=== PATIENT | female | born 1985 | race Caucasian/White ===

== ENCOUNTER 2020-10-28 10:36 | Emergency (ER) | payer OTHER ==
--- NOTE | 2020-10-28 11:31 | ERPHSYRPT ---
- History of Present Illness Time Seen by Provider: 10/28/20 10:38 Source: patient Exam Limitations: no limitations Patient Subjective Stated Complaint: HTN Triage Nursing Assessment: pt to ED c/o HTN x [address] Smiley for HTN yesterday and was given propranolol prescription. states she was feeling symptomatic again at work, dizzy, R arm tingling and cold sweats, and rechecked BP which read 180/130. called PCP office and was referred to ED. Physician History: 35 years old female with history of anxiety presented in the ER with chief complaint of elevated blood pressure with numbness tingling of the left arm/left thigh sudden onset almost an hour prior to arrival while she was at school. She got her blood pressure checked it was 180/130. On the way to ER she started to have cold sweats with generalized weakness fatigue and tiredness. Patient reports her blood pressure has been staying high and was seen at primary care, was started on propranolol. Patient reports she also developed throbbing headac he on the way to ER without any visual disturbance. Patient reports having headaches off and on for quite some time usually upon waking up and occasionally during the day time as well. No diplopia. Was evaluated by protective services officer in the past and was told that she probably have some kind of swelling in the back of her eye. Complaining of weakness all over but no focal weakness. No chest pain or palpitations reported. Timing/Duration: today, constant, sudden, improved Severity: moderate Associated Symptoms: headaches, weakness Allergies/Adverse Reactions: No Known Drug Allergies Allergy (Unverified 10/28/20 11:20) Home Medications: Propranolol HCl 20 mg [Inderal 20 MG] 20 mg PO TID 10/28/20 [History] Venlafaxine HCl ER 75 mg [Effexor XR 75 MG] 75 mg PO 10/28/20 [History] Hx Tetanus, Diphtheria Vaccination/Date Given: No Hx Influenza Vaccination/Date Given: No Hx Pneumococcal Vaccination/Date Given: No Immunizations Up to Date: No Travel Risk - International Travel Have you traveled outside of the country in past 3 weeks: No - Coronavirus Screening Are you exhibiting any of the following symptoms?: No Close contact with a COVID-19 positive Pt in past 14-21 Days: No - Vaccine Status Have you recieved a Covid-19 vaccination: No - Review of Systems Constitutional: No Symptoms Eyes: No Symptoms Ears, Nose, & Throat: No Symptoms Respiratory: No Symptoms Cardiac: No Symptoms Abdominal/Gastrointestinal: No Symptoms Genitourinary Symptoms: No Symptoms Musculoskeletal: No Symptoms Skin: No Symptoms Neurological: Headache, Sensory Changes Psychological: Anxiety Endocrine: No Symptoms Hematologic/Lymphatic: No Symptoms Immunological/Allergic: No Symptoms - Past Medical History Pertinent Past Medical History: Yes Neurological History: Other Psycho-Social History: Anxiety, Depression Other Medical History: ESCOBAR, - Past Surgical History Past Surgical History: Yes - Social History Smoking Status: Never smoker Exposure to second hand smoke: No Drug Use: none Patient Lives Alone: No - Female History Hx Now: (UNKN) - Nursing Vital Signs Nursing Vital Signs: Initial Vital Signs Temperature 97.1 F 10/28/20 11:03 Pulse Rate 59 L 10/28/20 11:03 Respiratory Rate 18 10/28/20 11:03 Blood Pressure 178/111 10/28/20 11:03 O2 Sat by Pulse Oximetry 98 10/28/20 11:03 Pain Scale Pain Intensity 4 - Physical Exam General Appearance: no apparent distress, alert Eye Exam: PERRL/EOMI, eyes nml inspection Ears, Nose, Throat Exam: normal ENT inspection, pharynx normal Neck Exam: normal inspection, supple, full range of motion Respiratory Exam: normal breath sounds, lungs clear Cardiovascular Exam: regular rate/rhythm, normal heart sounds Gastrointestinal/Abdomen Exam: soft, normal bowel sounds, No tenderness Back Exam: normal inspection, normal range of motion Extremity Exam: normal inspection, normal range of motion, pelvis stable Neurologic Exam: alert, oriented x 3, cooperative, fire control mechanic II-XII nml as tested, nml cerebellar function, nml station & gait, sensory deficit, No normal mood/affect (Anxious), No sensation nml (Decreased sensations of fine touch and left lateral forearm/palm/left lateral thigh), No motor deficits Skin Exam: normal color SpO2 Interpretation: normal SpO2: 98 O2 Delivery: Room Air - Course EKG Interpreted by Me: RATE (62), Sinus Rhythm, NORMAL AXIS, NORMAL INTERVALS, NORMAL QRS Ordered Tests: Active Orders 24 hr Category Date Time Status Software Licensing Analyst STAT Care 10/28/20 11:21 Completed EKG-ER Only STAT Care 10/28/20 11:20 Completed IV Insertion STAT Care 10/28/20 11:20 Completed NPO (ED) STAT Care 10/28/20 11:20 Completed CHEST 1 VIEW (PORTABLE) Stat Exams 10/28/20 11:20 Completed HEAD WITHOUT CONTRAST [CT] Stat Exams 10/28/20 11:20 Completed CBC W DIFF Stat Lab 10/28/20 11:33 Completed CMP Stat Lab 10/28/20 11:33 Completed HCG,QUALITATIVE URINE Stat Lab 10/28/20 11:26 Completed Lactic Acid Stat Lab 10/28/20 11:33 Completed TROPONIN Q3H Lab 10/28/20 11:30 Completed UA W/RFX UR CULTURE Stat Lab 10/28/20 11:26 Completed Urine Triage Profile Stat Lab 10/28/20 11:26 Completed Lab/Rad Data: Laboratory Result Diagrams 10/28/20 11:33 10/28/20 11:33 Laboratory Results 10/28/20 10/28/20 10/28/20 Range/Units 11:33 11:33 11:33 WBC 8.4 (4.0-10.5) K/mm3 RBC 4.98 (4.1-5.4) M/mm3 Hgb 13.3 (12.0-16.0) gm/dl Hct 40.7 (35-47) % MCV 81.7 (78-100) fl MCH 26.7 (26-32) pg MCHC 32.7 (32-36) g/dl RDW 13.7 (11.5-14.0) % Plt Count 244 (150-450) K/mm3 MPV 9.7 (7.5-11.0) fl Gran % 70.9 H (36.0-66.0) % Eos # (Auto) 0.01 (0-0.5) Absolute Lymphs (auto) 1.73 (1.0-4.6) Absolute Monos (auto) 0.69 (0.0-1.3) Lymphocytes % 20.6 L (24.0-44.0) % Monocytes % 8.2 (0.0-12.0) % Eosinophils % 0.1 (0.00-5.0) % Basophils % 0.2 (0.0-0.4) % Absolute Granulocytes 5.94 (1.4-6.9) Basophils # 0.02 (0-0.4) Sodium 139 (137-145) mmol/L Potassium 3.6 (3.5-5.1) mmol/L Chloride 104 (98-107) mmol/L Carbon Dioxide 27 (22-30) mmol/L Anion Gap 11.8 (5-15) MEQ/L BUN 16 (7-17) mg/dL Creatinine 0.66 (0.52-1.04) mg/dL Estimated GFR > 60.0 ML/MIN Glucose 89 (74-106) mg/dL Lactic Acid 0.7 (0.4-2.0) Calcium 9.2 (8.4-10.2) mg/dL Total Bilirubin 0.60 (0.2-1.3) mg/dL AST 24 (14-36) U/L ALT 27 (0-35) U/L Alkaline Phosphatase 96 (38-126) U/L Troponin I (0.000-0.034) ng/mL Serum Total Protein 7.7 (6.3-8.2) g/dL Albumin 4.3 (3.5-5.0) g/dL Urine Color (YELLOW) Urine Appearance (CLEAR) Urine pH (5-6) Ur Specific [place] (1.005-1.025) Urine Protein (Negative) Urine Ketones (NEGATIVE) Urine Blood (0-5) Taiwo/ul Urine Nitrite (NEGATIVE) Urine Bilirubin (NEGATIVE) Urine Urobilinogen (0-1) mg/dL Ur Leukocyte Esterase (NEGATIVE) Urine WBC (Auto) (0-5) /HPF Urine RBC (Auto) (0-2) /HPF U Epithel Cells (Auto) (FEW) /HPF Urine Bacteria (Auto) (NEGATIVE) /HPF Urine Mucus (Auto) (NEGATIVE) /HPF Urine Culture Reflexed (NO) Urine Glucose (NEGATIVE) mg/dL Urine HCG, Qual (Negative) Urine Opiates Level (NEGATIVE) Ur Methadone (NEGATIVE) Urine Barbiturates (NEGATIVE) Ur Phencyclidine (PCP) (NEGATIVE) Urine Amphetamine (NEGATIVE) U Benzodiazepine Level (NEGATIVE) Urine Cocaine (NEGATIVE) Urine Marijuana (THC) (NEGATIVE) 10/28/20 10/28/20 10/28/20 Range/Units 11:30 11:26 11:26 WBC (4.0-10.5) K/mm3 RBC (4.1-5.4) M/mm3 Hgb (12.0-16.0) gm/dl Hct (35-47) % MCV (78-100) fl MCH (26-32) pg MCHC (32-36) g/dl RDW (11.5-14.0) % Plt Count (150-450) K/mm3 MPV (7.5-11.0) fl Gran % (36.0-66.0) % Eos # (Auto) (0-0.5) Absolute Lymphs (auto) (1.0-4.6) Absolute Monos (auto) (0.0-1.3) Lymphocytes % (24.0-44.0) % Monocytes % (0.0-12.0) % Eosinophils % (0.00-5.0) % Basophils % (0.0-0.4) % Absolute Granulocytes (1.4-6.9) Basophils # (0-0.4) Sodium (137-145) mmol/L Potassium (3.5-5.1) mmol/L Chloride (98-107) mmol/L Carbon Dioxide (22-30) mmol/L Anion Gap (5-15) MEQ/L BUN (7-17) mg/dL Creatinine (0.52-1.04) mg/dL Estimated GFR ML/MIN Glucose (74-106) mg/dL Lactic Acid (0.4-2.0) Calcium (8.4-10.2) mg/dL Total Bilirubin (0.2-1.3) mg/dL AST (14-36) U/L ALT (0-35) U/L Alkaline Phosphatase (38-126) U/L Troponin I < 0.012 (0.000-0.034) ng/mL Serum Total Protein (6.3-8.2) g/dL Albumin (3.5-5.0) g/dL Urine Color (YELLOW) Urine Appearance (CLEAR) Urine pH (5-6) Ur Specific [place] (1.005-1.025) Urine Protein (Negative) Urine Ketones (NEGATIVE) Urine Blood (0-5) Taiwo/ul Urine Nitrite (NEGATIVE) Urine Bilirubin (NEGATIVE) Urine Urobilinogen (0-1) mg/dL Ur Leukocyte Esterase (NEGATIVE) Urine WBC (Auto) (0-5) /HPF Urine RBC (Auto) (0-2) /HPF U Epithel Cells (Auto) (FEW) /HPF Urine Bacteria (Auto) (NEGATIVE) /HPF Urine Mucus (Auto) (NEGATIVE) /HPF Urine Culture Reflexed (NO) Urine Glucose (NEGATIVE) mg/dL Urine HCG, Qual NEGATIVE (Negative) Urine Opiates Level NEGATIVE (NEGATIVE) Ur Methadone NEGATIVE (NEGATIVE) Urine Barbiturates NEGATIVE (NEGATIVE) Ur Phencyclidine (PCP) NEGATIVE (NEGATIVE) Urine Amphetamine NEGATIVE (NEGATIVE) U Benzodiazepine Level NEGATIVE (NEGATIVE) Urine Cocaine NEGATIVE (NEGATIVE) Urine Marijuana (THC) NEGATIVE (NEGATIVE) 10/28/20 Range/Units 11:26 WBC (4.0-10.5) K/mm3 RBC (4.1-5.4) M/mm3 Hgb (12.0-16.0) gm/dl Hct (35-47) % MCV (78-100) fl MCH (26-32) pg MCHC (32-36) g/dl RDW (11.5-14.0) % Plt Count (150-450) K/mm3 MPV (7.5-11.0) fl Gran % (36.0-66.0) % Eos # (Auto) (0-0.5) Absolute Lymphs (auto) (1.0-4.6) Absolute Monos (auto) (0.0-1.3) Lymphocytes % (24.0-44.0) % Monocytes % (0.0-12.0) % Eosinophils % (0.00-5.0) % Basophils % (0.0-0.4) % Absolute Granulocytes (1.4-6.9) Basophils # (0-0.4) Sodium (137-145) mmol/L Potassium (3.5-5.1) mmol/L Chloride (98-107) mmol/L Carbon Dioxide (22-30) mmol/L Anion Gap (5-15) MEQ/L BUN (7-17) mg/dL Creatinine (0.52-1.04) mg/dL Estimated GFR ML/MIN Glucose (74-106) mg/dL Lactic Acid (0.4-2.0) Calcium (8.4-10.2) mg/dL Total Bilirubin (0.2-1.3) mg/dL AST (14-36) U/L ALT (0-35) U/L Alkaline Phosphatase (38-126) U/L Troponin I (0.000-0.034) ng/mL Serum Total Protein (6.3-8.2) g/dL Albumin (3.5-5.0) g/dL Urine Color COLORLESS (YELLOW) Urine Appearance CLEAR (CLEAR) Urine pH 8.0 (5-6) Ur Specific [place] 1.002 (1.005-1.025) Urine Protein NEGATIVE (Negative) Urine Ketones NEGATIVE (NEGATIVE) Urine Blood MODERATE (0-5) Taiwo/ul Urine Nitrite NEGATIVE (NEGATIVE) Urine Bilirubin NEGATIVE (NEGATIVE) Urine Urobilinogen NEGATIVE (0-1) mg/dL Ur Leukocyte Esterase TRACE (NEGATIVE) Urine WBC (Auto) 0-2 (0-5) /HPF Urine RBC (Auto) 0-2 (0-2) /HPF U Epithel Cells (Auto) RARE (FEW) /HPF Urine Bacteria (Auto) NONE SEEN (NEGATIVE) /HPF Urine Mucus (Auto) SLIGHT (NEGATIVE) /HPF Urine Culture Reflexed NO (NO) Urine Glucose NEGATIVE (NEGATIVE) mg/dL Urine HCG, Qual (Negative) Urine Opiates Level (NEGATIVE) Ur Methadone (NEGATIVE) Urine Barbiturates (NEGATIVE) Ur Phencyclidine (PCP) (NEGATIVE) Urine Amphetamine (NEGATIVE) U Benzodiazepine Level (NEGATIVE) Urine Cocaine (NEGATIVE) Urine Marijuana (THC) (NEGATIVE) - Progress Progress: improved, re-examined Progress Note: 10/28/20 14:54 Patient was hyper tensive on presentation with systolic 178 with some subjective feeling of numbness in the left arm and thigh but no weakness. CT head is negative for any acute findings. Grossly unremarkable work-up otherwise except for mildly low potassium, obtain SOC neurology consult who thinks patient CT does have some finding which is a test idiopathic intracranial hypertension and with protective services officer findings she needs to see an agriculture engineer for detailed exam and also recommended outpatient MRI with MRV of brain to assess for any of the finding associated with IIA H/empty sella/dilated optic nerve sheath/transverse sinus stenosis and also follow-up with neurologist for migraines. Also have questionable obstructive apnea findings. Do not think patient needs any further work-up in the ER but outpatient with primary care/ophthalmology/neurology. Plan discussed with patient to understand and agrees with it. Her blood pressure improved without any intervention to 145, recommended outpatient follow-up and keeping a log of her blood pressure so that primary care can make some changes in medications. Discussed signs symptoms of worsening needing return to ER which she seems understanding. Discussed with : Other Counseled pt/family regarding: lab results, diagnosis, need for follow-up, rad results - Departure Departure Disposition: Home Clinical Impression: Uncontrolled hypertension, NAYELI (obstructive sleep apnea), IIH (idiopathic intracranial hypertension) Migraine Qualifiers: Migraine type: unspecified Status migrainosus presence: without status migrainosus Intractability: not intractable Qualified Code(s): G43.909 - Migraine, unspecified, not intractable, without status migrainosus Condition: Stable Critical Care Time: No Referrals: DOCTOR,NO FAMILY [Primary Care Provider] - EDMUNDO SMILEY MD [ACTIVE STAFF] - (Call tomorrow for reevaluation) MARY LORA [NON-STAFF PHY W/O PRIVILEGES] - (Call tomorrow for evaluation) MILTON OTERO [NON-STAFF PHY W/O PRIVILEGES] - (Call tomorrow for reevaluation) Instructions: High Blood Pressure Emergencies, Idiopathic Intracranial Hypertension (Pseudotumor Cerebri) Additional Instructions: Continue with your current medications. Follow-up with ophthalmology/neurology for reevaluation. You probably need a sleep study and needs to follow-up with primary care physician to set it up outpatient. Return to ER for worsening headache, visual symptoms, numbness tingling or focal weakness.
[2020-10-28 11:48] LABS: Absolute Neutrophil Ct (ANC) 5.94 (1.4-6.9); BASOPHIL % 0.2 % (0.0-0.4); Basophil (Absolute #) 0.02 (0-0.4); Eosinophil % 0.1 % (0.00-5.0); Eosinophil (Absolute #) 0.01 (0-0.5); Hematocrit 40.7 % (35-47); Hemoglobin 13.3 gm/dl (12.0-16.0); Lymphocyte (Absolute #) 1.73 (1.0-4.6); Lymphocytes % 20.6 % (24.0-44.0); Mean Cell Volume 81.7 fl (78-100); Mean Corpuscular Hemoglobin 26.7 pg (26-32); Mean Corpuscular Hgb Concent. 32.7 g/dl (32-36); Mean Platelet Volume 9.7 fl (7.5-11.0); Monocyte (Absolute #) 0.69 (0.0-1.3); Monocytes % 8.2 % (0.0-12.0); Neutrophil % 70.9 % (36.0-66.0); Platelet Count 244 K/mm3 (150-450); Red Blood Count 4.98 M/mm3 (4.1-5.4); Red Cell Distribution Width 13.7 % (11.5-14.0); White Blood Count 8.4 K/mm3 (4.0-10.5)
[2020-10-28 11:59] LABS: ALBUMIN 4.3 g/dL (3.5-5.0); ALKALINE PHOSPHATASE 96 U/L (38-126); ANION GAP 11.8 MEQ/L (5-15); BLOOD UREA NITROGEN 16 mg/dL (7-17); CHLORIDE 104 mmol/L (98-107); Calcium 9.2 mg/dL (8.4-10.2); Carbon Dioxide 27 mmol/L (22-30); Creatinine 1 0.66 mg/dL (0.52-1.04); EST GLOMERULAR FILTRATION RATE > 60.0 ML/MIN; Glucose 89 mg/dL (74-106); Potassium 3.6 mmol/L (3.5-5.1); SGOT/AST 24 U/L (14-36); SGPT/ALT 27 U/L (0-35); SODIUM 139 mmol/L (137-145); Total Protein 7.7 g/dL (6.3-8.2)
[2020-10-28 12:15] LABS: Appearance CLEAR (CLEAR); Bilirubin NEGATIVE (NEGATIVE); Blood MODERATE Ery/ul (0-5); Epithelial Cells RARE /HPF (FEW); Glucose NEGATIVE (NEGATIVE); Ketones NEGATIVE (NEGATIVE); Leukocyte Esterase TRACE (NEGATIVE); Mucus SLIGHT /HPF (NEGATIVE); Nitrite NEGATIVE (NEGATIVE); Protein,Urine Dip NEGATIVE (Negative); RBC 0-2 /HPF (0-2); Specific Gravity 1.002 (1.005-1.025); Urobilinogen NEGATIVE mg/dL (0-1); WBC 0-2 /HPF (0-5)
--- NOTE | 2020-10-28 12:19 | XRAY ---
Indication: Hypertension. Headache. Comparison: October 29, 2018. Portable chest again demonstrates normal heart and lungs with incidental right paratracheal and right hilar calcified nodes. Bony thorax intact. No new/acute findings.
--- NOTE | 2020-10-28 12:19 | XRAY ---
Indication: Headache. Hypertension. Multiple contiguous axial images obtained through the head without contrast. Comparison: None Normal appearing brain parenchyma, ventricles, and bony calvarium. Visualized paranasal sinuses and mastoid air cells are clear. Impression: Normal CT head without contrast exam.
[2020-10-28 12:27] LABS: Bacteria NONE SEEN /HPF (NEGATIVE)
[2020-10-28 12:41] LABS: Amphetamine,Urine NEGATIVE (NEGATIVE); Barbiturate,Urine NEGATIVE (NEGATIVE); Benzodiazepine,Urine NEGATIVE (NEGATIVE); Cocaine,Urine NEGATIVE (NEGATIVE); Methadone,Urine NEGATIVE (NEGATIVE); Opiate,Urine NEGATIVE (NEGATIVE); PCP,Urine NEGATIVE (NEGATIVE); THC,Urine NEGATIVE (NEGATIVE)
[2020-10-28 14:20] VITALS: PULSE 64
[2020-10-28 14:30] VITALS: BP 145/92
[2020-10-28 14:57] VITALS: O2SAT 98
== END 2020-10-28 14:59 | disposition home or self-care (01) ==
LOC: ED 10:36
DX: I10 Essential (primary) hypertension (principal); G93.2 Benign intracranial hypertension; G47.33 Obstructive sleep apnea (adult) (pediatric)
CPT/HCPCS: 36000; 36415; 70450; 71045; 80053; 80307; 81001; 83605; 84484; 84703; 85025; 93005; 93041; 99284

== ENCOUNTER 2022-04-12 05:59 | Day surgery (SDC) | payer OTHER ==
[2022-04-12] MEDS ORDERED: Lactated Ringers 1,000 ML IV SCH (07:00)
[2022-04-12] MEDS ORDERED: DIPRIVAN 200 MG/20 ML IV ONE ×2 (07:50→08:12)
[2022-04-12] MEDS ORDERED: Xylocaine-Mpf 2% 5 Ml Vial ONE (07:50)
[2022-04-12] MEDS ORDERED: Versed 2 MG/2 ML Injection ONE (07:51)
[2022-04-12 08:54] VITALS: O2SAT 100
--- NOTE | 2022-04-12 09:02 | OP ---
SURGERY DATE/TIME: 04/12/2022 0800 PREOPERATIVE DIAGNOSIS: Chronic constipation. POSTOPERATIVE DIAGNOSES: 1) Normal colon. 2) External hemorrhoids. PROCEDURE: Colonoscopy. SURGEON: Tanner Melgar M.D. ANESTHESIA: MAC by Sanford Jernigan CRNA. ESTIMATED BLOOD LOSS: None. SPECIMENS: None. DESCRIPTION OF PROCEDURE: After informed written consent was obtained, the patient was taken to the endoscopy suite. She was placed in left lateral decubitus position. Anesthesia was titrated to desired level of consciousness. Digital rectal exam revealed external hemorrhoids but no internal lesions, normal sphincter tone. The scope was inserted into the rectum and sequentially the entire colonic mucosa was traversed. The level of cecum was reached and verified with direct visualization of the ileocecal valve. Upon withdrawal careful mucosal inspection revealed no gross abnormalities or lesions. Prep was noted to be good. Prior to withdrawal retroflexion was performed and showed no internal lesions. The scope was removed. The patient was transferred to the recovery room in good condition.
[2022-04-12 09:18] VITALS: BP 121/76; PULSE 60
== END 2022-04-12 09:25 | disposition home or self-care (01) ==
LOC: SDC 05:59
PROVIDERS: ATTEND Family Medicine
DX: K64.4 Residual hemorrhoidal skin tags (principal); K59.09 Other constipation
CPT/HCPCS: 81025; J2250; J2704